=== PATIENT | female | born 1975 | race Hispanic/Latino ===

== ENCOUNTER 2021-09-14 11:02 | Emergency (ER) | payer BC ==
[~2021-09-14] VITALS: Ht 172.7 cm; Wt 70.5 kg
[2021-09-14] MEDS ORDERED: BOOSTRIX/ADACEL VACCINE (DIPHTH/PERTUSS/ACELL/TETANUS) 0.5ML SYR IM ONE (12:20)
[2021-09-14] MEDS ORDERED: BACITRACIN OINTMENT 30GM TUBE TOP ONE (12:20)
[2021-09-14 12:29] VITALS: BP 103/61
== END 2021-09-14 12:40 | disposition home or self-care (01) ==
LOC: M ED 11:02
DX: S91.311A Laceration without foreign body, right foot, initial encounter (principal); W56.89XA Other contact with other nonvenomous marine animals, initial encounter; Y92.89 Other specified places as the place of occurrence of the external cause